=== PATIENT | female | born 1975 | race Caucasian/White ===

== ENCOUNTER → 2020-10-07 | Day surgery (SDC) | payer OTHER ==
[~2020-10-07] VITALS: Ht 162.6 cm; Wt 95.0 kg
[~2020-10-07] MED LIST: CARV6.2511 PO; ESCITALOPRAM OX10 MG PO; HYDROmorphone 2 MG/ML VIAL IVP PRN; IV RINGERS,LACTATED 1000ML 1,000 ML IV SCH; LIDOCAINE 2% PF 5 ML VIAL. ONE; LORA10CA PO; MONT10TA49 PO; MORPHINE SULFATE 2 MG/ML INJ. IVP PRN; PROCHLORPERAZINE 10 MG/2 ML VIAL. IVP PRN; PROPOFOL 10 MG/ML (20ML) VIAL. IV ONE; fentaNYL PF VIAL 100 MCG/2 ML VIAL IVP PRN
[2020-10-07 07:09] VITALS: BP 128/83
[2020-10-07 08:35] VITALS: BP 116/68
--- NOTE | 2020-10-07 21:03 | CONS ---
DATE OF CONSULTATION: 10/07/2020 REFERRING PHYSICIAN: Jeanette Stevenson MD REASON FOR CONSULTATION: Change in bowel habits. HISTORY OF PRESENT ILLNESS: This is a 45-year-old female whose past medical history is significant for hypertension and reactive airway disease. She is seen for change in bowel habits with change in frequency of stools as well as constipation, has been moderate in nature. Weight and appetite are stable. There has been no melena and/or hematochezia. With recent change in her habits ____ to her periods and consultation for colonoscopy is requested. PAST MEDICAL HISTORY: Hypertension and reactive airway disease. ALLERGIES: MORPHINE, OXYCODONE, SHELLFISH. MEDICATIONS: Include carvedilol, citalopram, Claritin, montelukast. SOCIAL HISTORY: She is a nonsmoker, social drinker. PAST SURGICAL HISTORY: Status post , cholecystectomy. REVIEW OF SYSTEMS: Per records. PHYSICAL EXAMINATION: GENERAL: Reveals a well-nourished, well-developed female, alert, cooperative, in no acute distress. VITAL SIGNS: Temperature 97, pulse 53, respiratory rate 16. LUNGS: Clear. CARDIAC: S1, S2, without S3, S4 or appreciable murmur. ABDOMEN: With a soft abdomen, normal bowel sounds, without appreciable hepatosplenomegaly. EXTREMITIES: Reveals no cyanosis, clubbing or edema. IMPRESSION: Change in bowel habits, etiology to be determined. Differential includes diverticular disease, irritable bowel syndrome, colon polyps, colon cancer; therefore, recommend colonoscopy. Risks, benefits of procedure have been previously discussed. The patient is willing to proceed at this time. WALE DR: Negra TID: [id number]
== END | disposition home or self-care (01) ==
LOC: ENDOS 06:30
PROVIDERS: ATTEND Internal Medicine Gastroenterology
DX: R19.4 Change in bowel habit (principal); K64.0 First degree hemorrhoids; K63.89 Other specified diseases of intestine; I10 Essential (primary) hypertension; J45.909 Unspecified asthma, uncomplicated; F41.9 Anxiety disorder, unspecified; F32.9 Major depressive disorder, single episode, unspecified; Z90.49 Acquired absence of other specified parts of digestive tract; Z98.890 Other specified postprocedural states; Z79.899 Other long term (current) drug therapy; Z88.8 Allergy status to other drugs, medicaments and biological substances; Z88.6 Allergy status to analgesic agent; Z91.013 Allergy to seafood
CPT/HCPCS: 45378; J2704